=== PATIENT | male | born 1970 | race Caucasian/White ===

== ENCOUNTER 2019-06-27 15:20 | Emergency (ER) | payer MEDICAID ==
[~2019-06-27] VITALS: Ht 193 cm; Wt 117.0 kg
[2019-06-27 15:39] VITALS: BP 153/83
[2019-06-27] MEDS ORDERED: FLUO10CA25 PO (15:42)
== END 2019-06-27 16:49 | disposition home or self-care (01) ==
LOC: ER 15:20
DX: H60.90 Unspecified otitis externa, unspecified ear (principal)
CPT/HCPCS: 99281; 99283